=== PATIENT | female | born 1950 | race Caucasian/White ===

== ENCOUNTER 2017-10-27 12:36 | Emergency (ER) | payer MEDICARE, OTHER ==
[2012-12-21 10:06] VITALS: BMI 27.8
[2017-10-27 13:16] LABS: ALBUMIN 3.7 g/dL (3.4-5.0); BILIRUBIN - TOTAL 0.38 mg/dL (0.2-1.3); CALCIUM 9.5 mg/dL (8.5-10.1); CARBON DIOXIDE 30.3 mmol/L (21.0-32.0); CREATININE - SERUM 0.9 mg/dL (0.6-1.3); POTASSIUM - SERUM 4.3 mmol/L (3.5-5.1); PROTEIN - SERUM 6.7 g/dL (6.4-8.2)
[2017-10-27 13:20] LABS: BASOPHILS 0.5 % (0-2); EOSINOPHILS 2.2 % (0-7); HEMATOCRIT 43.8 % (36.0-48.0); HEMOGLOBIN 14.5 g/dL (12-16); IMMATURE GRANULOCYTES 0.5 % (0-5); LYMPHOCYTES 23.9 % (15-50); MCH 29.7 pg (26.0-34.0); MCHC 33.1 g/dL (31.0-37.0); MCV 89.8 fL (80.0-100.0); MEAN PLATELET VOLUME 10.2 fL (7.4-10.4); MONOCYTES 7.7 % (2-11); NEUTROPHILS 65.2 % (40-80); PLATELET COUNT 233 10x3/uL (130-400); RBC 4.88 10x6/uL (4.00-5.40); RDW 12.9 % (11.5-14.5); WBC 9.3 10x3/uL (4.8-10.8)
[2017-10-27 13:24] LABS: APPEARANCE HAZY (CLEAR); BILIRUBIN NEGATIVE (NEGATIVE); COLOR YELLOW (YELLOW); GLUCOSE NEGATIVE (NEGATIVE); KETONE NEGATIVE (NEGATIVE); NITRITE NEGATIVE (NEGATIVE); PROTEIN NEGATIVE (NEGATIVE)
== END 2017-10-27 16:09 | disposition home or self-care (01) ==
LOC: D.ER 12:36
PROVIDERS: Emergency Medicine
DX: K29.70 Gastritis, unspecified, without bleeding (principal); I10 Essential (primary) hypertension; E03.9 Hypothyroidism, unspecified

== ENCOUNTER 2018-08-29 13:55 | Inpatient (IN) | payer MEDICARE, OTHER ==
[~2018-08-29] VITALS: Ht 157.5 cm; Wt 57.2 kg
--- NOTE | ~2018-08-29 | MORECARE ---
CASE MANAGEMENT DISCHARGE SUMMARY PATIENT: YENI GAONA UNIT: [id number] ADM DATE: 08/29/18 AGE: 67 : 50 SEX: F ROOM/BED: D.2104 AUTHOR: DAVID GIBSON PHYSICIAN: REFERRING PHYSICIAN: NICHOLE BOJORQUEZ MD DATE OF SERVICE: 09/03/18 Discharge Plan Patient Name: YENI GAONA [facility] [facility] 1950 Planned Disposition: Home Anticipated Discharge Date: 09/01/18 Discharge Date: 09/01/2018 Expected LOS: 3 Initial Reviewer: [email or web address] Initial Review Date: 09/03/2018 Generated: 09/03/18 9:07 am Patient Name: YENI GAONA Page [id number] at 0807 All edits/amendments must be made on the electronic document DICTATION DATE: 09/03/18805 HAND BRUSH FILLER: MADELIN 09/03/18 08 RPT#: [id number] DC DATE:09/01/18 STATUS: DIS IN [facility] [address] [place] [address] END OF REPORT
[2018-08-29] MEDS ORDERED: ZESTRIL40 MG PO (14:43)
[2018-08-29] MEDS ORDERED: TENORMIN50 MG PO (14:43)
[2018-08-29] MEDS ORDERED: SYNTHROID112 MCG PO (14:44)
[2018-08-29] MEDS ORDERED: HYDROCHLOROTH12.5 M1 PO (14:44)
[2018-08-29] MEDS ORDERED: PROTONIX40 MG PO (14:44)
[2018-08-29] MEDS ORDERED: CELEXA40 MG PO (14:44)
[2018-08-29] MEDS ORDERED: PAMELOR75 MG PO (14:45)
[2018-08-29] MEDS ORDERED: TRAZODONE HCL100 MG PO (14:45)
[2018-08-29] MEDS ORDERED: LIPITOR10 MG PO (14:45)
[2018-08-29 15:18] LABS: HEMATOCRIT 48.7 % (36.0-48.0); HEMOGLOBIN 15.9 g/dL (12-16); MCH 29.2 pg (26.0-34.0); MCHC 32.6 g/dL (31.0-37.0); MCV 89.5 fL (80.0-100.0); PLATELET COUNT 289 10x3/uL (130-400); RBC 5.44 10x6/uL (4.00-5.40); WBC 21.2 10x3/uL (4.8-10.8)
[2018-08-29 15:36] LABS: ALBUMIN 3.3 g/dL (3.4-5.0); ALKALINE PHOSPHATASE 275 U/L (46-116); ALT (SGPT) 34 U/L (10-68); BILIRUBIN - TOTAL 0.53 mg/dL (0.2-1.3); CALC OSMOLALITY 289 mosm/kg (275-300); CALCIUM 9.1 mg/dL (8.5-10.1); CARBON DIOXIDE 23.9 mmol/L (21.0-32.0); CHLORIDE - SERUM 103 mmol/L (98-107); CREATININE - SERUM 1.5 mg/dL (0.6-1.3); POTASSIUM - SERUM 4.2 mmol/L (3.5-5.1); PROTEIN - SERUM 6.9 g/dL (6.4-8.2); SODIUM 138 mmol/L (136-145); UREA NITROGEN 26 mg/dL (7-18); eGFR NON AFRICAN AMERICAN 37 mL/min (90-120)
[2018-08-29 15:37] LABS: GLUCOSE 259 mg/dL (74-106)
[2018-08-29 15:40] LABS: LIPASE 259 U/L (73-393)
[2018-08-29 15:49] LABS: AMYLASE - SERUM 324 U/L (25-115); TROPONIN-I < 0.017 ng/mL (0.000-0.060)
[2018-08-29 16:24] LABS: LYMPHOCYTES 11 % (15-50); NEUTROPHILS 88 % (40-80); PLATELET ESTIMATE NORMAL
[2018-08-29 18:07] VITALS: BP 163/71
[2018-08-29 19:35] VITALS: BP 187/81
[2018-08-29] MEDS ORDERED: CELEXA20 MG PO (20:32)
[2018-08-29] MEDS ORDERED: CARAFATE1 G PO (20:34)
[2018-08-30] VITALS: BP 120/58
[2018-08-30 00:20] LABS: APPEARANCE CLEAR (CLEAR); BILIRUBIN NEGATIVE (NEGATIVE); COLOR YELLOW (YELLOW); GLUCOSE NEGATIVE (NEGATIVE); KETONE SMALL mg/dL (NEGATIVE); NITRITE NEGATIVE (NEGATIVE); PROTEIN 1+ mg/dL (NEGATIVE); UROBILINOGEN NORMAL (NORMAL)
[2018-08-30 00:21] LABS: BACTERIA FEW /hpf (NONE SEEN); EPITHELIAL CELLS 0-5 /hpf (0-5); RED CELLS - URINE 0-5 /hpf (0-5); WHITE CELLS - URINE 0-5 /hpf (0-5)
[2018-08-30 01:05] VITALS: BP 203/95
[2018-08-30 04:00] VITALS: BP 136/66
[2018-08-30 06:53] LABS: BASOPHILS 0.5 % (0-2); EOSINOPHILS 1.1 % (0-7); IMMATURE GRANULOCYTES 0.4 % (0-5); LYMPHOCYTES 16.2 % (15-50); MCH 28.8 pg (26.0-34.0); MCHC 32.1 g/dL (31.0-37.0); MCV 89.9 fL (80.0-100.0); MEAN PLATELET VOLUME 9.9 fL (7.4-10.4); MONOCYTES 8.7 % (2-11); NEUTROPHILS 73.1 % (40-80)
[2018-08-30 06:55] LABS: HEMATOCRIT 36.5 % (36.0-48.0); HEMOGLOBIN 11.7 g/dL (12-16); PLATELET COUNT 213 10x3/uL (130-400); RBC 4.06 10x6/uL (4.00-5.40); WBC 10.7 10x3/uL (4.8-10.8)
[2018-08-30 06:59] LABS: APTT 33.2 SECONDS (22.8-39.4); INR 1.02 (0.85-1.17); PROTIME 13.1 SECONDS (11.6-15.0)
[2018-08-30 07:11] LABS: ALBUMIN 2.8 g/dL (3.4-5.0); ANION GAP 12.6 mmol/L (8-16); BILIRUBIN - TOTAL 0.34 mg/dL (0.2-1.3); CALCIUM 8.2 mg/dL (8.5-10.1); CARBON DIOXIDE 24.7 mmol/L (21.0-32.0); CREATININE - SERUM 1.2 mg/dL (0.6-1.3); POTASSIUM - SERUM 4.3 mmol/L (3.5-5.1); PROTEIN - SERUM 5.8 g/dL (6.4-8.2)
[2018-08-30 08:19] VITALS: BP 170/62
[2018-08-30 11:02] VITALS: BP 184/76
[2018-08-30 15:02] VITALS: BP 166/71
[2018-08-31 04:22] LABS: BASOPHILS 0.4 % (0-2); EOSINOPHILS 1.4 % (0-7); HEMATOCRIT 36.7 % (36.0-48.0); HEMOGLOBIN 11.5 g/dL (12-16); IMMATURE GRANULOCYTES 0.3 % (0-5); MCH 28.2 pg (26.0-34.0); MCHC 31.3 g/dL (31.0-37.0); MEAN PLATELET VOLUME 10.8 fL (7.4-10.4); MONOCYTES 6.9 % (2-11); PLATELET COUNT 153 10x3/uL (130-400); RBC 4.08 10x6/uL (4.00-5.40); RDW 12.9 % (11.5-14.5)
[2018-08-31 04:39] LABS: ALBUMIN 2.8 g/dL (3.4-5.0); ANION GAP 10.8 mmol/L (8-16); BILIRUBIN - TOTAL 0.48 mg/dL (0.2-1.3); CALCIUM 8.7 mg/dL (8.5-10.1); CARBON DIOXIDE 25.9 mmol/L (21.0-32.0); CREATININE - SERUM 0.9 mg/dL (0.6-1.3); POTASSIUM - SERUM 3.7 mmol/L (3.5-5.1); PROTEIN - SERUM 5.9 g/dL (6.4-8.2)
[2018-08-31 08:07] VITALS: BP 117/50
[2018-08-31 11:34] VITALS: BP 127/57
[2018-08-31 12:13] VITALS: Ht 157.5 cm; Wt 57.2 kg
[2018-08-31 15:12] VITALS: BP 129/49
[2018-08-31 16:05] LABS: BASOPHILS 0.4 % (0-2); EOSINOPHILS 1.3 % (0-7); HEMATOCRIT 31.5 % (36.0-48.0); HEMOGLOBIN 10.1 g/dL (12-16); IMMATURE GRANULOCYTES 0.5 % (0-5); LYMPHOCYTES 17.6 % (15-50); MCH 28.6 pg (26.0-34.0); MCHC 32.1 g/dL (31.0-37.0); MCV 89.2 fL (80.0-100.0); MEAN PLATELET VOLUME 9.4 fL (7.4-10.4); MONOCYTES 7.3 % (2-11); NEUTROPHILS 72.9 % (40-80); PLATELET COUNT 149 10x3/uL (130-400); RBC 3.53 10x6/uL (4.00-5.40); RDW 12.9 % (11.5-14.5)
[2018-08-31 16:13] LABS: WBC 8.2 10x3/uL (4.8-10.8)
[2018-08-31 20:00] VITALS: BP 120/52
[2018-09-01] VITALS: BP 124/50
[2018-09-01 04:00] VITALS: BP 149/64
[2018-09-01 04:21] LABS: BASOPHILS 0.7 % (0-2); EOSINOPHILS 2.8 % (0-7); HEMATOCRIT 31.1 % (36.0-48.0); IMMATURE GRANULOCYTES 0.5 % (0-5); LYMPHOCYTES 26.5 % (15-50); MCH 28.6 pg (26.0-34.0); MCHC 32.2 g/dL (31.0-37.0); MCV 88.9 fL (80.0-100.0); MEAN PLATELET VOLUME 9.7 fL (7.4-10.4); MONOCYTES 6.7 % (2-11); NEUTROPHILS 62.8 % (40-80); PLATELET COUNT 157 10x3/uL (130-400); RDW 12.8 % (11.5-14.5)
[2018-09-01 04:25] LABS: WBC 6.1 10x3/uL (4.8-10.8)
[2018-09-01 04:32] LABS: CALCIUM 8.4 mg/dL (8.5-10.1); CHLORIDE - SERUM 108 mmol/L (98-107); CREATININE - SERUM 0.8 mg/dL (0.6-1.3); GLUCOSE 87 mg/dL (74-106); SODIUM 140 mmol/L (136-145); eGFR NON AFRICAN AMERICAN 76 mL/min (90-120)
[2018-09-01 04:41] LABS: CALC OSMOLALITY 276 mosm/kg (275-300); UREA NITROGEN 11 mg/dL (7-18)
[2018-09-01 09:08] VITALS: BP 141/51
[2018-09-01] MEDS ORDERED: FLAGYL500 MG PO (11:15)
[2018-09-01] MEDS ORDERED: LEVAQUIN750 MG PO (11:15)
== END 2018-09-01 13:10 | disposition home or self-care (01) | DRG 394 ==
LOC: D.ER 13:55 → D.M2 18:21 → D.EDHOLD 18:21 → D.M2 18:45
PROVIDERS: Family Medicine; Internal Medicine Gastroenterology; Internal Medicine Nephrology
DX: K55.9 Vascular disorder of intestine, unspecified (principal); A09 Infectious gastroenteritis and colitis, unspecified; D62 Acute posthemorrhagic anemia; N17.9 Acute kidney failure, unspecified; I10 Essential (primary) hypertension; E78.5 Hyperlipidemia, unspecified; I25.10 Atherosclerotic heart disease of native coronary artery without angina pectoris; Z95.5 Presence of coronary angioplasty implant and graft; K21.9 Gastro-esophageal reflux disease without esophagitis; E03.9 Hypothyroidism, unspecified; F32.9 Major depressive disorder, single episode, unspecified

== ENCOUNTER 2021-01-11 10:19 | Emergency (ER) | payer MEDICARE, OTHER ==
[~2021-01-11 10:19] MED LIST: CARAFATE1 G PO; CELEXA20 MG PO; CELEXA40 MG PO; FLAGYL500 MG PO; HYDROCHLOROTH12.5 M1 PO; LEVAQUIN750 MG PO; LIPITOR10 MG PO; PAMELOR75 MG PO; PROTONIX40 MG PO; SYNTHROID112 MCG PO; TENORMIN50 MG PO; TRAZODONE HCL100 MG PO; ZESTRIL40 MG PO
[2021-01-11 11:04] LABS: BASOPHILS 0.4 % (0-2); EOSINOPHILS 0.5 % (0-7); HEMATOCRIT 44.7 % (36.0-48.0); HEMOGLOBIN 14.5 g/dL (12-16); IMMATURE GRANULOCYTES 0.3 % (0-5); LYMPHOCYTE ABS# 1.35 10x3/uL (1.18-3.74); MCH 28.6 pg (26.0-34.0); MCHC 32.4 g/dL (31.0-37.0); MCV 88.2 fL (80.0-100.0); MEAN PLATELET VOLUME 9.8 fL (7.4-10.4); MONOCYTES 6.1 % (2-11); NEUTROPHIL ABS# 8.31 10x3/uL (1.56-6.13); NEUTROPHILS 79.7 % (40-80); RBC 5.07 10x6/uL (4.00-5.40); WBC 10.4 10x3/uL (4.8-10.8)
[2021-01-11 11:06] LABS: CALC OSMOLALITY 277 mosm/kg (275-300); CALCIUM 9.2 mg/dL (8.5-10.1); CARBON DIOXIDE 28.8 mmol/L (21.0-32.0); CHLORIDE - SERUM 100 mmol/L (98-107); CREATININE - SERUM 0.9 mg/dL (0.6-1.3); GLUCOSE 120 mg/dL (74-106); POTASSIUM - SERUM 3.9 mmol/L (3.5-5.1); SODIUM 138 mmol/L (136-145); UREA NITROGEN 16 mg/dL (7-18); eGFR NON AFRICAN AMERICAN 66 mL/min (90-120)
[2021-01-11 11:16] LABS: ALBUMIN 4.2 g/dL (3.4-5.0); ALKALINE PHOSPHATASE 136 U/L (30-120); ALT (SGPT) 19 U/L (10-68); AMYLASE - SERUM 54 U/L (25-115); BILIRUBIN - TOTAL 0.66 mg/dL (0.2-1.3); LIPASE 250 U/L (73-393); PROTEIN - SERUM 7.9 g/dL (6.4-8.2); TROPONIN-I < 0.017 ng/mL (0.000-0.060)
[2021-01-11 11:20] LABS: PLATELET COUNT 277 10x3/uL (130-400)
[2021-01-11 11:21] LABS: BILIRUBIN NEGATIVE (NEGATIVE); KETONE SMALL mg/dL (NEGATIVE); NITRITE NEGATIVE (NEGATIVE)
[2021-01-11 11:23] LABS: BACTERIA FEW HPF (NONE SEEN); SQUAMOUS EPITHELIAL OCC HPF (0-4); WHITE CELLS - URINE NONE SEEN HPF (0-4)
[2021-01-11] MEDS ORDERED: PROTONIX40 MG PO (13:06)
== END 2021-01-11 13:15 | disposition home or self-care (01) ==
LOC: D.ER 10:19
PROVIDERS: Emergency Medicine
DX: R10.13 Epigastric pain (principal); K29.70 Gastritis, unspecified, without bleeding; K21.9 Gastro-esophageal reflux disease without esophagitis; I25.2 Old myocardial infarction; Z95.5 Presence of coronary angioplasty implant and graft